=== PATIENT | female | born 1960 | race Two or more races ===

== ENCOUNTER 2017-11-26 12:15 | Inpatient (IN) | payer OTHER ==
[~2017-11-26] VITALS: Ht 167.6 cm; Wt 62.1 kg
[~2017-11-26 12:15] MED LIST: SULFAZINE500 MG PO; [UNRECOGNIZED DRUG - OTHER] PO
== END 2017-12-08 15:56 | disposition home or self-care (01) | DRG 330 ==
LOC: O/R 12-05 05:55 → SURH 12-05 05:55
PROVIDERS: Colon & Rectal Surgery
PROC: 0DQB4ZZ Repair Ileum, Percutaneous Endoscopic Approach (ICD-10-PCS; principal; 2017-12-05 07:00)
DX: K51.018 Ulcerative (chronic) pancolitis with other complication (principal); N17.8 Other acute kidney failure; Z43.2 Encounter for attention to ileostomy; E86.0 Dehydration; D64.89 Other specified anemias

== ENCOUNTER → 2017-12-02 | Outpatient (CLI) | payer OTHER | END | disposition home or self-care (01) | LOC: RAD 11:31 | DX: K51.018 Ulcerative (chronic) pancolitis with other complication (principal); Z93.2 Ileostomy status; Z01.818 Encounter for other preprocedural examination ==

== ENCOUNTER 2017-12-03 08:10 | Day surgery (SDC) | payer OTHER | END 2017-12-03 16:15 | disposition home or self-care (01) | LOC: AMB-ENDOS 08:10 | DX: K51.818 Other ulcerative colitis with other complication (principal); D01.0 Carcinoma in situ of colon; R11.10 Vomiting, unspecified; K56.699 Other intestinal obstruction unspecified as to partial versus complete obstruction; D72.828 Other elevated white blood cell count; N39.0 Urinary tract infection, site not specified; R14.0 Abdominal distension (gaseous); R65.10 Systemic inflammatory response syndrome (SIRS) of non-infectious origin without acute organ dysfunction; Z93.2 Ileostomy status ==

== ENCOUNTER 2024-01-10 08:09 | Outpatient (CLI) | payer OTHER ==
[2024-01-10 09:58] LABS: HEMATOCRIT 38.6 % (36.0-45.00); HEMOGLOBIN 12.5 g/dL (12.0-15.00); MEAN CELL VOLUME 79.2 fL (80.00-100.00); MEAN CORPUSCULAR HEMOGLOBIN 25.6 pg (27.00-32.0); MEAN CORPUSCULAR HGB CONC 32.3 g/dl (32.0-36.0); RED BLOOD COUNT 4.88 M/uL (4.00-6.00); RED CELL DISTRIBUTION WIDTH 18.7 % (11.5-14.5)
[2024-01-10 10:00] LABS: PLATELET COUNT 110 K/uL (150-450)
[2024-01-10 10:36] LABS: % SATURACION 19.8 % (15-50); ALBUMIN 3.5 gm/dL (3.4-5.0); BILIRUBIN TOTAL 0.5 mg/dL (0.3-1.2); CALCIUM 8.9 mg/dL (8.5-10.1); CREATININE SERUM 0.9 mg/dL (0.55-1.02); GFR 63.24; POTASSIUM 4.35 mEq/L (3.5-5.1); TOTAL PROTEIN 7.5 gm/dL (6.4-8.2)
[2024-01-12 10:38] LABS: MANUAL PLATELET COUNT 212
[2024-01-12 10:44] LABS: PLATELET ESTIMATE NORMAL (NORMAL)
== END 2024-01-10 08:30 | disposition home or self-care (01) ==
LOC: LAB 08:09
PROVIDERS: ATTEND Colon & Rectal Surgery
DX: D50.8 Other iron deficiency anemias (principal); R79.9 Abnormal finding of blood chemistry, unspecified; K76.89 Other specified diseases of liver; C56.9 Malignant neoplasm of unspecified ovary; R97.8 Other abnormal tumor markers; K51.90 Ulcerative colitis, unspecified, without complications; D69.59 Other secondary thrombocytopenia; R19.00 Intra-abdominal and pelvic swelling, mass and lump, unspecified site; E03.8 Other specified hypothyroidism

== ENCOUNTER 2024-01-13 07:44 | Outpatient (CLI) | payer OTHER | END 2024-01-13 07:57 | disposition home or self-care (01) | LOC: TOM 07:44 | PROVIDERS: ATTEND Internal Medicine Hematology & Oncology | DX: K51.90 Ulcerative colitis, unspecified, without complications (principal); D69.59 Other secondary thrombocytopenia; R19.00 Intra-abdominal and pelvic swelling, mass and lump, unspecified site; E03.8 Other specified hypothyroidism ==

== ENCOUNTER 2024-06-22 06:00 | Day surgery (SDC) | payer OTHER ==
[~2024-06-22] VITALS: Ht 167.6 cm; Wt 68.0 kg
[2024-06-22] MEDS ORDERED: CEFAZOLIN SODIUM 1,000 MG VIAL ONE ×2 (08:13→11:51)
[2024-06-22] MEDS ORDERED: LIDOCAINE HCL 1% 20ML VIAL IJ ONE (09:28)
[2024-06-22] MEDS ORDERED: HEPARIN SODIUM,PORCINE 500 UNITS/5 ML VIAL IV ONE (09:28)
[2024-06-22] MEDS ORDERED: HEPARIN SODIUM,PORCINE 500 UNITS/5 ML VIAL IV SCH (10:45)
[2024-06-22] MEDS ORDERED: CEFAZOLIN SODIUM 1,000 MG VIAL IV SCH ×2 (10:45→11:45)
[2024-06-22] MEDS ORDERED: LIDOCAINE HCL 1% 10ML VIAL IJ SCH (10:45)
[2024-06-22] MEDS ORDERED: FAMOTIDINE/PF 20 MG/10 ML SYRINGE IV SCH (11:45)
[2024-06-22] MEDS ORDERED: RINGERS SOLUTION,LACTATED 1,000 ML IV SCH (11:45)
[2024-06-22] MEDS ORDERED: FAMOTIDINE/PF 20 MG/2 ML VIAL ONE (11:52)
== END 2024-06-22 12:50 | disposition home or self-care (01) ==
LOC: CIR.AMB 06:00
PROVIDERS: ATTEND Specialist
DX: C18.9 Malignant neoplasm of colon, unspecified (principal); H52.209 Unspecified astigmatism, unspecified eye
CPT/HCPCS: 36561; C1751

== ENCOUNTER 2024-12-24 08:54 | Outpatient (CLI) | payer OTHER ==
[2024-12-24 10:22] LABS: HEMATOCRIT 38.2 % (36.0-45.00); HEMOGLOBIN 12.6 g/dL (12.0-15.00); MEAN CELL VOLUME 93.5 fL (80.00-100.00); MEAN CORPUSCULAR HEMOGLOBIN 30.8 pg (27.00-32.0); MEAN CORPUSCULAR HGB CONC 32.9 g/dl (32.0-36.0); PLATELET COUNT 283 K/uL (150-450); RED BLOOD COUNT 4.09 M/uL (4.00-6.00); RED CELL DISTRIBUTION WIDTH 17.8 % (11.5-14.5)
[2024-12-24 11:27] LABS: BILIRUBIN TOTAL 0.48 mg/dL (0.3-1.2); CALCIUM 8.8 mg/dL (8.5-10.1); CREATININE SERUM 0.73 mg/dL (0.55-1.02); GFR 80.26; GLOBULINA 3.8 G/DL (2.4-3.5); POTASSIUM 4.48 mEq/L (3.5-5.1); TOTAL PROTEIN 6.8 gm/dL (6.4-8.2)
[2024-12-25 10:05] LABS: CA 125 16.2 U/mL (0.0-38.1)
== END 2024-12-24 09:08 | disposition home or self-care (01) ==
LOC: LAB 08:54
PROVIDERS: ATTEND Internal Medicine Hematology & Oncology
DX: C18.8 Malignant neoplasm of overlapping sites of colon (principal); C78.6 Secondary malignant neoplasm of retroperitoneum and peritoneum; K51.90 Ulcerative colitis, unspecified, without complications; D69.59 Other secondary thrombocytopenia; R19.00 Intra-abdominal and pelvic swelling, mass and lump, unspecified site; E03.8 Other specified hypothyroidism; R59.0 Localized enlarged lymph nodes; D50.8 Other iron deficiency anemias; I10 Essential (primary) hypertension; R74.02 Elevation of levels of lactic acid dehydrogenase [LDH]; K76.89 Other specified diseases of liver; C50.919 Malignant neoplasm of unspecified site of unspecified female breast; R97.8 Other abnormal tumor markers; C56.9 Malignant neoplasm of unspecified ovary; R97.0 Elevated carcinoembryonic antigen [CEA]